=== PATIENT | female | born 1950 | race Caucasian/White ===

== ENCOUNTER 2020-10-17 16:48 | Emergency (ER) | payer MEDICARE, SELFPAY ==
[2020-10-17] VITALS (18 sets, daily range): BP systolic 123–158; BP diastolic 60–73; PULSE 70–93; RESP 12–19; TEMP 36.9; O2SAT 96–100
--- NOTE | ~2020-10-17 | XR_ITS ---
XR hand LT min 3V 10/17/2020 18:40 Indication: Left fifth finger pain Procedure: 3 views left hand Comparison: No prior studies for comparison. Findings: There is polyarticular osteoarthritis of the third, fourth and fifth distal interphalangeal joints. 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 No fract ure or traumatic malalignment. No significant soft tissue abnormality. No foreign bodies. Impression: 1: Moderate-severe polyarticular osteoarthritis of the third, fourth and fifth distal interphalangeal joints. Reviewed, dictated and finalized at location A. 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
--- NOTE | ~2020-10-17 | CT_ITS ---
EXAMINATION: CT brain wo con DATE: 10/17/2020 18:39 INDICATION: Head injury. Headache. TECHNIQUE: Computed tomography (CT) of the head was performed without intravenous contrast. The dose- length product was 605.33 mGy-cm. The mA was adjusted according to patient size. Iterative reconstruc tion technique was employed. COMPARISON: None FINDINGS: Mild generalized atrophy. There are scattered mild periventricular and subcortical white ma tter changes, most likely related to small vessel ischemic disease (microangiopathy). No ventriculome luisa or midline shift. Basilar cisterns are patent. Paranasal sinuses and mastoids are pneumatized. N o depressed skull fractures. IMPRESSION: 1. No acute intracranial abnormality. Sinus Reviewed, dictated and finalized at location A. START COORDINATOR
--- NOTE | 2020-10-17 17:51 | ED.HEATRA ---
HPI - Head Injury General Chief complaint: Wound/Laceration Stated complaint: left eye lac post fall Time Seen by Provider: 10/17/20 17:29 Source: patient Mode of arrival: ambulatory Limitations: no limitations History of Present Illness HPI Narrative: Patient is a 70-year-old female complaining of left-sided head pain and laceration on her left pinky finger after she tripped and fall landing on her left side due to lift on the sidewalk, part of it was not even . Patient states that she has parkinsonism and that she usually drives her left foot with weakness of her left lower extremity, which also contributed to her fall. Patient denies any loss of consciousness. Patient denies any neck pain, back pain, chest pain, abdominal pain, pelvic pain, hip pain or any other extremity pain/injury. Related Data Allergies Allergy/AdvReac Type Severity Reaction Status Date / Time No Known Allergies Allergy Mild Unverified 05/17/09 10:13 Review of Systems Review of Systems: All systems reviewed & are unremarkable except as noted in HPI and below Constitutional: Constitutional: Denies body ache(s), Denies chills, Denies excessive sweating, Denies fatigue, Denies fever(s), Denies headache(s), Denies lethargy, Denies malaise and Denies weight loss Eyes: Eyes: Denies blurry vision, Denies change in vision and Denies loss of vision ENT: Denies dizziness, Denies ear discharge, Denies headache(s), Denies lip swelling, Denies epistaxis, Denies nasal congestion, Denies neck pain, Denies throat swelling and Denies tongue swelling Cardiovascular: Cardiovascular: Denies chest pain, Denies chest pain at rest, Denies chest pain with activity, Denies diaphoresis, Denies rapid heart rate, Denies edema, Denies irregular heart rhythm, Denies lightheadedness, Denies palpitations, Denies dyspnea and Denies dyspnea on exertion Respiratory: Respiratory: Denies chest congestion, Denies cough, Denies hemoptysis, Denies dyspnea and Denies dyspnea on exertion Gastrointestinal: Gastrointestinal: Denies abdominal pain, Denies melena, Denies hematochezia, Denies diarrhea, Denies nausea, Denies vomiting and Denies hematemesis Musculoskeletal: Musculoskeletal: Denies abnormal gait, Denies deformity, Denies neck pain and Denies numbness Neurologic: Denies Abnormal speech present, Denies confusion, Denies dizziness, Denies headache(s), Denies loss of vision, Denies numbness, Denies Other visual disturbances and Denies Sensory deficit (Neuro) Psychiatric: Psychiatric: Denies confusion, Denies depression, Denies auditory hallucinations, Denies homicidal ideation and Denies suicidal ideation Endocrine: Endocrine: Denies cold intolerance, Denies excessive sweating, Denies fatigue, Denies heat intolerance and Denies palpitations Hematologic/Lymphatic: Hematologic/Lymphatic: Denies easy bleeding and Denies easy bruising Allergic/Immunologic: Allergic/Immunologic: Denies lip swelling, Denies throat swelling and Denies tongue swelling Exam Const: General: cooperative, healthy appearing, comfortable, no acute distress, well developed, alert and awake; No confusion Orientation/consciousness: oriented to person, oriented to place, oriented to time, patient oriented x3 and No confusion Limitations: no limitations HENMT: Ears: hearing grossly normal bilaterally, external ears normal, TM normal on the right and TM normal on the left General nose exam: Normal external nose present, Normal nares present and No nasal discharge present Mouth: Yes Normal oral and palatal mucosa present, Yes lip normal, Yes tongue normal and Yes oropharynx normal Throat: posterior oropharynx normal, tonsils normal and uvula midline Other: Left frontal head contusion with ecchymosis and abrasion, left facial contusion, left facial abrasion Eyes: General: appearance normal, both eyes and all related structures Pupils: Equal, round and reactive pupils present EOM: EOMs intact bilaterally Neck: Neck: normal visu
[2020-10-17] MEDS: TETANUS,DIPHTHERIA,AC PERTUSSIS ADULT (0.5 ML) BOOSTRIX IM (19:51)
== END 2020-10-17 20:05 | disposition home or self-care (01) ==
PROVIDERS: Emergency Provider Emergency Medicine
DX: S00.93XA Contusion of unspecified part of head, initial encounter (principal); S61.217A Laceration without foreign body of left little finger without damage to nail, initial encounter; Z23 Encounter for immunization; W18.09XA Striking against other object with subsequent fall, initial encounter
CPT/HCPCS: 12001; 70450; 73130; 90471; 90715; 99284

== ENCOUNTER 2021-03-05 10:00 | Outpatient (RCR) | payer MEDICARE, SELFPAY ==
--- NOTE | 2021-02-04 13:42 | STOPEVAL ---
SPEECH THERAPY INITIAL EVALUATION AND DISCHARGE: Thank you for referring Omayra Chisholm to [facility].? Given the normal testing outcomes, no further Speech Therapy is warranted at this time. Please review, sign, date and return this plan of care DEANA. I agree with and certify that the following plan of care is medically necessary. 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 Hx Other Respiratory Disorders Yes: pulmonary nodules Gastrointestinal History Hx Gastroesophageal Reflux Disease Yes: scar tissue on vocal cords from reflux Musculoskeletal History Hx Degenerative Disk Disease Yes Hx Spinal Surgery Yes: laminectomy L4 & 5 HEENT History Hx Cataracts Yes: beginning to appear per her Dr Hx Macular Degeneration Yes Hx Sinus Problems Yes Reproductive History Hx Hysterectomy Yes Psychosocial History Hx Depression Yes: after hysterectomy r/t hormones Evaluation Information Problem Diagnosis reports word finding difficulty & sounds slurred at times Onset 10 months ago Additional Evaluation Detail Pt reports that her physician stated she had either parkinsonism versus a CVA. Pt recently completed physical therapy at [facility] from which she was given HEP. Subjective Information Pleasant and outgoing; Query Text:As Reported By Patient/ Recently moved back to Family [place] from [place] October 11. Pt fell October 17. She denied having loss of consciousness but stated she hit her head hard on the concrete and injured her left hand -- hand xray revealed moderate-severe polyarticular osteoarthritis of the third, fourth and fifth distal interphalan
--- NOTE | 2021-02-04 14:52 | OTOPEVAL ---
OCCUPATIONAL THERAPY INITIAL EVALUATION REPORT 02/04/21 Thank you for referring Omayra Chisholm to [facility].? The patient is scheduled to be seen for therapy? 2x/week for 4 weeks. Please review, sign, date and return this plan of care DEANA. I agree with and certify that the following plan of care is medically necessary. 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 Hx Other Respiratory Disorders Yes: pulmonary nodules Gastrointestinal History Hx Gastroesophageal Reflux Disease Yes: scar tissue on vocal cords from reflux Musculoskeletal History Hx Degenerative Disk Disease Yes Hx Spinal Surgery Yes: laminectomy L4 & 5 HEENT History Hx Cataracts Yes: beginning to appear per her Dr Hx Macular Degeneration Yes Hx Sinus Problems Yes Reproductive History Hx Hysterectomy Yes Psychosocial History Hx Depression Yes: after hysterectomy r/t hormones Evaluation Information Problem Diagnosis Hemiparesis of left, nondominant side; unspecified hemiparesis etiology Onset About 10 months ago Subjective Information Pt states she fell October Query Text:As Reported By Patient/ 5th. She denied having loss of Family consciousness but stated she hit her head hard on the concrete. Head CT was negative . Pt has residual occasional dizziness. Pt reports that her left sided weakness was present prior to that recent fall but everything is worse now. Reports weakness and slowness on entire left side. Since this fall she has completed some PT at [facility]. Patient reports that her left leg
--- NOTE | 2021-02-19 10:46 | PCOTNOTE ---
Patient called & cancelled scheduled appointment this date due to illness.
--- NOTE | 2021-03-05 10:27 | OTOPEVAL ---
OCCUPATIONAL THERAPY RE-EVALUATION AND DISCHARGE SUMMARY 03/05/21 Omayra presents today for OT re-evaluation after 4 weeks of therapy. Sessions have been focused on improving amplitude of movement in the left UE/LE during functional mobility and ADLs. She reports improvements with ADLs, standing balance, and body awareness which has overall improved her safety and function. She is currently independent with HEP to continue to work on flexibility, large amplitude movements, and balance. No further skilled OT is indicated at this time. Thank you for referring Omayra Chisholm to [facility]. Please review, sign, date and return this D/C Note DEANA. I agree with and certify that the following plan of care is medically necessary. Referring Physician Date Referring Provider: Travon Arevalo MD *OT Outpatient Re-Evaluation Start: 02/04/21 13:30 Problem Diagnosis Hemiparesis of left, nondominant side; unspecified hemiparesis etiology Onset About 10 months ago Additional Evaluation Detail Patient has participated in 6 outpatient OT sessions. Treatments have been focused on improving amplitude of movement in the left UE/LE. Subjective Information Patient states that she has Query Text:As Reported By Patient/ made some functional Family improvements since beginning therapy 4 weeks ago. She states that she is improved with LB dressing tasks, walking on carpet/curbs/grass, standing and shaving her legs int he shower, and using the left hand to wash her face and hair. She states that when she really attends to using the left arm and hand and she is able to use her left side better. She states she also feels more confident with her standing balance. Throughout therapy patient has reported a lot of ups/downs with her energy levels and fatigue. She feels like its a roller coaster . She states she sometimes just feels drunk . She has been keeping a daily journal on energy levels and overall how she feels. PSFS: improved from 33.5/50 to 36.5/50. Pain Assessment Timing of Pain Assessment Timing of Pain Asses
== END 2021-03-06 08:14 | disposition home or self-care (01) ==
LOC: ANHOT 10:00
DX: G81.94 Hemiplegia, unspecified affecting left nondominant side (principal); R13.19 Other dysphagia
CPT/HCPCS: 92523; 92610; 97110; 97166

== ENCOUNTER 2022-02-14 18:40 | Emergency (ER) | payer MEDICARE, SELFPAY ==
--- NOTE | ~2022-02-14 | CT_ITS ---
EXAMINATION: CT brain wo con DATE: 02/14/2022 19:22 INDICATION: fall eval for head injury . TECHNIQUE: Computed tomography (CT) of the head was performed without intravenous contrast. The mA wa s adjusted according to patient size. Iterative reconstruction technique was employed. The dose-lengt h product was 529.67 mGy-cm. COMPARISON: 10/17/2020 FINDINGS: No acute intracranial hemorrhage or extra-axial fluid collection. No hydrocephalus, mass, or herniation. No acute ischemic infarct. Unremarkable dural venous sinus attenuation. No acute osseous abnormality. Right periorbital contusion. The aerated spaces are clear. Mild atrophy and chronic white matter change. IMPRESSION: No acute intracranial process. Reviewed, dictated and finalized at location K.
[2022-02-14 18:43] VITALS: BP 177/83; PULSE 90; RESP 18; O2SAT 98
--- NOTE | 2022-02-14 19:13 | ED.FALL ---
HPI - Fall General Chief Complaint: Fall <Herb Vega MD - Last Filed: 02/14/22 23:18> Stated Complaint: fall with lac to face <Herb Vega MD - Last Filed: 02/14/22 23:18> Time Seen by Provider: 02/14/22 18:58 <Herb Vega MD - Last Filed: 02/14/22 23:18> Source: patient <Herb Vega MD - Last Filed: 02/14/22 23:18> History of Present Illness HPI Narrative: Patient presents with a fall. 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 For she was walking in her driveway when she tripped and struck her head. She had a similar event approximately a year ago and struck her head in the same area. She denies any prodrome prior to the fall such as chest pain, lightheadedness, shortness of breath, dizziness. She denies any acute change in numbness or weakness. She denied any loss of consciousness denies any blurry vision or double vision. She denies use of blood thinners. <Herb Vega MD - Last Filed: 02/14/22 23:18> Related Data Allergies/Adverse Reactions: Allergies Allergy/AdvReac Type Severity Reaction Status Date / Time montelukast [From Singulair] AdvReac Hypertensio Verified 02/14/22 18:49 n Penicillins AdvReac Hyperactive Verified 02/14/22 18:49 <Herb Vega MD - Last Filed: 02/14/22 23:18> Review of Systems Review of Systems: CONSTITUTIONAL: Denies fever, chills, or sweats. EYES: Denies visual changes, redness, or discharge. ENT: Denies rhinorrhea, congestion, sore throat, or otalgia. CARDIOVASCULAR: Denies chest pain, palpitations, or edema. RESPIRATORY: Denies cough or dyspnea. GASTROINTESTINAL: Denies abdominal pain, nausea, vomiting, or diarrhea. GENITOURINARY: Denies dysuria or hematuria. SKIN: Denies rash or itching. MUSCULOSKELETAL: Denies back pain, joint pain, or myalgia. NEUROLOGIC: Denies headache, numbness, dizziness, or weakness. PSYCHIATRIC: Denies anxiety or depression. <Herb Vega MD - Last Filed: 02/14/22 23:18> All systems reviewed & are unremarkable except as noted in HPI and below <Herb Vega MD - Last Filed: 02/14/22 23:18> Exam Narrative: GENERAL: Well-appearing, well-nourished, and in no acute distress. HEAD: Normocephalic, proximately 2 cm superficial laceration just superior and lateral to the left orbit EYES: PERRLA and EOMI. ENT: Nares clear, no rhinorrhea or epistaxis. Mucous membranes moist. NECK: Supple. No masses. No JVD CHEST: Clear to auscultation. No respiratory distress. No wheezes rales or rhonchi HEART: Regular rate and rhythm. No murmur heard. Normal peripheral pulses. ABDOMEN: Soft, nontender, nondistended, normal active bowel sounds. EXTREMITIES: Normal range of motion. No edema. SKIN: Warm, dry, no rash. NEURO: No nerves II through XII are intact patient is 5 out of 5 strength all extremities sensation intact light touch in all extremities alert and oriented x3. PSYCH: Normal mood and affect. <Herb Vega MD - Last Filed: 02/14/22 23:18> Course Reevaluation(s) Reevaluation #1: Patient resting comfortably results reviewed with patient. Patient is comfortable outpatient plan. <Herb Vega MD - Last Filed: 02/14/22 23:18> Date: 02/14/22 <Herb Vega MD - Last Filed: 02/14/22 23:18> Time: 19:57 <Herb Vega MD - Last Filed: 02/14/22 23:18> Vital Signs Vital signs: Vital Signs Pulse Rate 90 02/14/22 18:43 Respiratory Rate 18 02/14/22 18:43 Blood Pressure 177/83 H 02/14/22 18:43 Pulse Oximetry 98 02/14/22 18:43 Oxygen Delivery Room Air 02/14/22 18:43 Pulse Rate 90 02/14/22 18:43 Respiratory Rate 18 02/14/22 18:43 Blood Pressure 177/83 H 02/14/22 18:43 Pulse Oximetry 98 02/14/22 18:43 Oxygen Delivery Room Air 02/14/22 18:43 <Herb Vega MD - Last Filed: 02/14/22 23:18> Vital Signs Pulse Rate 90 02/14/22 18:43 Respiratory Rate 18
[2022-02-14] MEDS: LIDO 1%/EPINEPHRINE 1:100,000 20 ML VIAL INFILTRATE (20:04)
[2022-02-14] MEDS: ACETAMINOPHEN 500 MG TABLET 1000 MG PO (21:05)
== END 2022-02-14 21:15 | disposition home or self-care (01) ==
PROVIDERS: Emergency Provider Emergency Medicine
DX: S01.112A Laceration without foreign body of left eyelid and periocular area, initial encounter (principal); I69.944 Monoplegia of lower limb following unspecified cerebrovascular disease affecting left non-dominant side; W01.0XXA Fall on same level from slipping, tripping and stumbling without subsequent striking against object, initial encounter
CPT/HCPCS: 12011; 70450; 99284; A9270

== ENCOUNTER 2024-09-15 15:26 | Emergency (ER) | payer OTHER, MEDICARE, SELFPAY ==
--- NOTE | ~2024-09-15 | CT_ITS ---
CT facial & cervical spine wo Ordering provider: Dante Martin MD History: . Fall on Blood Thinners . Comparison: None. Technique: Thin slice axial CT of the facial bones was performed without contrast. Coronal and sagit casandra reformatted images were also obtained. . Automated exposure control and iterative reconstruction technique were employed. The dose-length product was 126.94 mGy-cm. FINDINGS: PARANASAL SINUSES: Well aerated.: Focal mucosal Thickening in the right ethmoid sinus. BONES: No facial fracture including no nasal bone fracture. ORBITS AND SUPERFICIAL SOFT TISSUES: The optic globes and orbits are normal. The superficial soft tis sues are normal. VISUALIZED MASTOIDS: Well aerated. LIMITED VISUALIZED BRAIN PARENCHYMA: Normal. IMPRESSION: No facial fracture. CT facial & cervical spine wo Ordering provider: Dante Martin MD History: . Fall on Blood Thinners . Comparison: None. Technique: CT of the cervical spine was performed without contrast. Sagittal and coronal reformatted images were also obtained and reviewed. Automated exposure control and iterative reconstruction kong hnique were employed. The dose-length product was 126.94 mGy-cm. FINDINGS: VERTEBRAE: No subluxation or acute fracture. The occipital condyles are intact. DISC SPACES: Narrowing of the disc C5-C6, C6-C7 and C7-T1. Multilevel facet joint disease. Multilevel uncovertebral joint osteoarthritic changes. Multilevel intervertebral foraminal narrowing. PARASPINOUS SOFT TISSUES: Enlarged left lobe of the thyroid with nodules in both lobes. Ultrasound ev aluation advised. IMPRESSION: No acute osseous abnormality cervical spine. Multilevel degenerative disc disease. Bilateral thyroid nodules. Ultrasound evaluation advised. Reviewed, dictated and finalized at location A. ERY ASSOCIATE IMPRESSION: No facial fracture. CT facial & cervical spine wo Ordering provider: Dante Martin MD History: . Fall on Blood Thinners . Comparison: None. Technique: CT of the cervical spine was performed without contrast. Sagittal a nd coronal reformatted images were also obtained and reviewed. Automated expos ure control and iterative reconstruction technique were employed. The dose-gabriela th product was 126.94 mGy-cm. FINDINGS: VERTEBRAE: No subluxation or acute fracture. The occipital condyles are intact. DISC SPACES: Narrowing of the disc C5-C6, C6-C7 and C7-T1. Multilevel facet nelda nt disease. Multilevel uncovertebral joint osteoarthritic changes. Multilevel i ntervertebral foraminal narrowing. PARASPINOUS SOFT TISSUES: Enlarged left lobe of the thyroid with nodules in bot h lobes. Ultrasound evaluation advised.
--- NOTE | ~2024-09-15 | CT_ITS ---
CT brain wo con Ordering provider: Dante Martin History: 74 years Female with . Fall on Blood Thinners . Comparison: February 14, 2022 Technique: CT of the head without contrast. Radiation reduction technique utilized.The dose-length product was 605.33 mGy-cm. FINDINGS: BRAIN PARENCHYMA AND CSF SPACES: Mild leukoaraiosis and diffuse cortical atrophy. Mild atheromatous d isease. No midline shift, mass effect or hemorrhage. The brain parenchyma and CSF spaces are otherwi se normal. VISUALIZED PARANASAL SINUSES: Well aerated. MASTOIDS: Well aerated. BONES: The bones appear intact. SOFT TISSUES: Visualized nasopharynx is normal. Superficial soft tissues are normal. IMPRESSION: No acute intracranial findings. Reviewed, dictated and finalized at location A. T FLUNKY
[2024-09-15 15:32] VITALS: BP 147/81; PULSE 90; RESP 18; TEMP 36.6; O2SAT 98
[2024-09-15 17:21] VITALS: BP 136/78; PULSE 77; RESP 16; TEMP 36.7; O2SAT 97
--- NOTE | 2024-09-15 19:50 | ED.FALL ---
HPI - Fall General Chief Complaint: Fall Stated Complaint: Fall, Blood Thinners Time Seen by Provider: 09/15/24 16:59 History of Present Illness HPI Narrative: 74-year-old female presenting to the emergency department from [facility] via EMS after a fall. Patient fell out of her recliner forward onto her face. Patient has no deficit small abrasion to the bridge of the nose with some bruising but no obvious deformity. Bleeding controlled. Patient is accompanied by family member who provides the majority of the collateral formation as patient is very difficult to communicate with secondary to speech disorder. Patient is hospice and currently going through hospice level of care. Patient is talking and communicating and acting appropriately at their normal mentation level per family member at bedside. No other acute concerns at this time. Patient does take blood thinners. Related Data Home Medications ?Medication ?Instructions ?Recorded ?Confirmed ?Last Taken ?Type Unable to Obtain Home Medications 06/27/24 08/13/24 Unknown History Allergies Allergy/AdvReac Type Severity Reaction Status Date / Time montelukast (From Singulair) AdvReac Hypertensio Verified 08/13/24 20:51 n Penicillins AdvReac Hyperactive Verified 08/13/24 20:51 Review of Systems Review of Systems: As reviewed above [facility] Social History Social History Smoking status: Never smoker Exam Narrative: GENERAL: [Well-appearing, well-nourished, and in no acute distress.] HEAD: [Normocephalic, atraumatic.] EYES: [PERRLA and EOMI.] ENT: Nares are clear without any epistaxis, there is a small anterior abrasion to the nose with any bleeding or laceration, bruising to the anterior nasal bridge without any step-off or deformity. No blood in the oropharynx NECK: Supple. CHEST: [Clear to auscultation. No respiratory distress.] HEART: [Regular rate and rhythm]. No murmur heard. [Normal peripheral pulses.] ABDOMEN: [Soft, nondistended], [nontender], [No rigidity or guarding] EXTREMITIES: Normal range of motion. [No edema.] SKIN: Warm, dry, no rash. NEURO: [No focal deficits]. Alert and oriented at her baseline mentation PSYCH: [Normal mood and affect.] Course Vital Signs Vital signs: Vital Signs Temperature 36.6 C 09/15/24 15:32 Pulse Rate 90 09/15/24 15:32 Respiratory Rate 18 09/15/24 15:32 Blood Pressure 147/81 H 09/15/24 15:32 Pulse Oximetry 98 09/15/24 15:32 Oxygen Delivery Room Air 09/15/24 15:32 Temperature 36.7 C 09/15/24 17:21 Pulse Rate 77 09/15/24 17:21 Respiratory Rate 16 09/15/24 17:21 Blood Pressure 136/78 09/15/24 17:21 Pulse Oximetry 97 09/15/24 17:21 Oxygen Delivery Room Air 09/15/24 15:32 MDM - Fall MDM Narrative Medical decision making narrative: 74-year-old female presenting from her skilled care facility for concerns of a mechanical fall out of her recliner forward. She does have some bruising to the anterior portion of her nose but no obvious fracture deformity. No bleeding at this time, no laceration. No obvious evidence of trauma to her head. She does take blood thinner medications. Patient is a hospice patient and currently going through hospice care at the facility. CTs were ordered of the head, maxillary facial structures and cervical spine. Patient otherwise appears well and is at her baseline mentation with no focal deficits or acute pain or concerns. CT head shows no acute intracranial findings. CT of the maxillary facial structures and cervical spine shows no acute osseous deformity of the spine or nasal bones, no facial fractures. No acute findings. Patient is safe and stable for discharge back to her facility and patient and family member were comfortable with this plan of care. EMS transport will be arranged. Medical Records Attestation: I reviewed the patient's medical records. Imaging Data Attestation: I personally reviewed and interpreted this imaging study as follows: My impression: Impressions Head CT 09/15/24 16:20 IMPRESSION: No acute intracranial findings. Head/Cervical Spine/Facial Bones CT 09/15/24 16:50 IMPRESSION: No facial fracture. CT facial & cervical spine wo Ordering provider: Dante Martin MD History: . Fall on Blood Thinners . Comparison: None. Technique: CT of the cervical spine was performed without contrast. Sagittal and coronal reformatted images were also obtained and reviewed. Automated exposure control and iterative reconstruction technique were employed. The dose-length product was 126.94 mGy-cm. FINDINGS: VERTEBRAE: No subluxation or acute fracture. The occipital condyles are intact. DISC SPACES: Narrowing of the disc C5-C6, C6-C7 and C7-T1. Multilevel facet joint disease. Multilevel uncovertebral joint osteoarthritic changes. Multilevel intervertebral foraminal narrowing. PARASPINOUS SOFT TISSUES: Enlarged left lobe of the thyroid with nodules in both lobes. Ultrasound evaluation advised. IMPRESSION: No acute osseous abnormality cervical spine. Multilevel degenerative disc disease. Bilateral thyroid nodules. Ultrasound evaluation advised. Discharge Plan Discharge Clinical Impression: CHI (closed head injury), Fall, Abrasion of nose Patient Disposition: [facility]Asst Living Condition: Stable Instructions: Antibiotic Form, Head Injury (ED), Abrasion (ED) Additional Instructions: Follow-up with your regular doctor, return with any new or worsening concerns, Tylenol ibuprofen and warm compresses for pain control. Patient Language: Togolese Prescriptions: No Action Unable to Obtain Home Medications Follow-up/Referrals: PHYSICIAN,DIRECTOR OF STRATEGIC SALES [Non-Staff] - Time of Disposition: 17:13
[2024-09-15 20:39] VITALS: BP 132/68; PULSE 73; RESP 18; TEMP 36.5; O2SAT 100
[2024-09-16 01:50] VITALS: BP 132/79; PULSE 69; RESP 15; O2SAT 99
--- NOTE | 2024-09-16 02:31 | PC.NURSE ---
This RN called [facility] and updated them on pts arrival to facility.
[2024-09-16 02:33] VITALS: BP 132/79; PULSE 69; RESP 15; O2SAT 99
== END 2024-09-16 02:36 | disposition hospice, home (50) ==
PROVIDERS: Emergency Provider Student in an Organized Health Care Education/Training Program
DX: S00.33XA Contusion of nose, initial encounter (principal); S00.31XA Abrasion of nose, initial encounter; M50.322 Other cervical disc degeneration at C5-C6 level; E04.1 Nontoxic single thyroid nodule; W07.XXXA Fall from chair, initial encounter
CPT/HCPCS: 70450; 70486; 72125; 99284